=== PATIENT | female | born 1985 | race Caucasian/White ===

== ENCOUNTER 2023-01-06 10:11 | Outpatient (CLI) | payer MEDICARE, OTHER, SELFPAY ==
[2023-01-06 13:50] LABS: Albumin* 4.2 g/dL (3.3-5.0); Chloride* 101 mmol/L (96-114); Sodium* 136 mmol/L (135-149)
[2023-01-06 13:50] LABS: Basophils Absolute Auto 0.01 K/uL (0.00-0.30); Basophils Percent Auto 0.1 % (0.0-3.0); Eosinophils Absolute Auto 0.14 K/uL (0.00-0.50); Eosinophils Percent Auto 1.5 % (0.0-7.0); Hematocrit 39.7 % (33.0-51.0); Hemoglobin* 13.1 gm/dL (12.0-16.0); Immature Granulocytes Abs Auto 0.07 K/uL (0.00-0.30); Immature Granulocytes Pct Auto 0.8 %; Lymphocytes Absolute Auto 1.91 K/uL (0.90-2.90); Lymphocytes Percent Auto 21.1 % (20-44); Mean Corpuscular HGB Conc 33 gm/dL (32-36); Mean Corpuscular Hemoglobin 30 pg (26-34); Mean Corpuscular Volume 91 fL (80-100); Monocytes Percent Auto 6.3 % (0.0-11.0); Neutrophils Absolute Auto 6.37 K/uL (1.7-7.0); Neutrophils Percent Auto 70.2 % (42.0-72.0); Platelet Count* 294 K/uL (140-440); RDW Coefficient of Variation % 12.1 % (11.5-15.5); Red Blood Count 4.35 m/uL (4.00-5.20); White Blood Count* 9.07 K/uL (4.50-11.00)
[2023-01-06 13:51] LABS: Potassium* 3.8 mmol/L (3.6-5.1)
[2023-01-06 13:52] LABS: Creatinine* 0.8 mg/dL (0.5-1.5); Estimated Glomerular Filt Rate 98 ml/min
[2023-01-06 13:53] LABS: Alanine Aminotransferase* 28 U/L (4-35); Alkaline Phosphatase* 86 U/L (40-150); Aspartate Amino Transferase* 32 U/L (12-35); Bilirubin Total* 0.3 mg/dL (0.1-1.5); Carbon Dioxide* 28 mmol/L (20-32); Total Protein* 7.2 g/dL (6.0-8.3)
[2023-01-06 13:54] LABS: Blood Urea Nitrogen* 18 mg/dL (5-24); Calcium* 9.1 mg/dL (8.4-10.6); Glucose* 86 mg/dL (60-115)
[2023-01-06 14:12] LABS: C Reactive Protein* < 0.5 mg/dL (0.5-1.0)
[2023-01-06 14:14] LABS: Slide Review Reflex No
[2023-01-06 14:24] LABS: TSH With Reflex to FT4* 0.858 uIU/mL (0.270-4.200)
[2023-01-06 14:44] LABS: Vitamin B12* 412 pg/mL (243-894)
[2023-01-06 14:45] LABS: Erythrocyte SedimentationRate* 7 mm/hr (2-20)
[2023-01-07 18:07] LABS: Rheumatoid Factor <10 IU/mL (0-14)
[2023-01-07 22:14] LABS: Anti-Nuclear Ab(ANA)IgG ELISA None Detected (None Detected)
== END 2023-01-06 10:12 | disposition home or self-care (01) ==
PROVIDERS: PCP Nurse Practitioner Family; Visit Provider Nurse Practitioner Family
DX: M25.50 Pain in unspecified joint (principal); R20.2 Paresthesia of skin; L65.9 Nonscarring hair loss, unspecified; R53.83 Other fatigue; R21 Rash and other nonspecific skin eruption
CPT/HCPCS: 80053; 82607; 84443; 85025; 85651; 86039; 86140; 86431